=== PATIENT | female | born 1960 | race Caucasian/White ===

== ENCOUNTER 2020-01-30 07:37 | Outpatient (CLI) | payer OTHER, BC ==
[~2020-01-30 07:37] MED LIST: GLUCOSAMINE PO; MULT-658 PO; NAPR-856 PO; NONE PER PT
[2020-01-30] MEDS ORDERED: TURM538C PO (15:34)
[2020-02-04] MEDS ORDERED: FENTANYL PF 250 MCG/5ML ONE (08:40)
== END 2020-01-30 23:59 | disposition home or self-care (01) ==
LOC: STAR 07:37
PROVIDERS: ATTEND Family Medicine
DX: Z20.828 Contact with and (suspected) exposure to other viral communicable diseases (principal)
CPT/HCPCS: 87635

== ENCOUNTER 2020-02-04 07:52 | Day surgery (SDC) | payer OTHER, BC ==
[~2020-02-04] VITALS: Ht 170.2 cm; Wt 75.2 kg
[~2020-02-04 07:52] MED LIST changes: +BUPIVACAINE/PF 0.5% ONE; +EPINEPHRINE 1 MG/ML, 1ML ONE; +TURM538C PO
[2020-02-04] MEDS ORDERED: CHLORHEXIDINE 15 ML UDC MM ONE (08:30)
[2020-02-04] MEDS ORDERED: LACTATED RINGERS 1,000 ML IV SCH (08:30)
[2020-02-04] MEDS ORDERED: GLYCOPYRROLATE 0.2MG/1ML, 5ML ONE (09:47)
[2020-02-04] MEDS ORDERED: CEFAZOLIN 1,000 MG ONE (09:47)
[2020-02-04] MEDS ORDERED: DEXAMETHASONE 4 MG/ML, 1ML ONE (09:47)
[2020-02-04] MEDS ORDERED: PROPOFOL 10 MG/ML, 20ML ONE (09:47)
[2020-02-04] MEDS ORDERED: ONDANSETRON 2MG/ML, 2ML ONE (09:47)
[2020-02-04] MEDS ORDERED: hydrALAzine 20 MG/ML, 1ML IV PRN (10:00)
[2020-02-04] MEDS ORDERED: [UNRECOGNIZED DRUG - OTHER] IV ONE (10:00)
[2020-02-04] MEDS ORDERED: OXYcodone 5 MG/5 ML ORAL.SOL UDC PO PRN (10:00)
[2020-02-04] MEDS ORDERED: MEPERIDINE/PF 25MG/0.5ML IVPush PRN (10:00)
[2020-02-04] MEDS ORDERED: FENTANYL PF 100 MCG/2ML IV PRN (10:00)
[2020-02-04] MEDS ORDERED: ACETAMINOPHEN 325 MG TABLET PO PRN (10:00)
[2020-02-04] MEDS ORDERED: HYDROmorphone 1 MG/ML, 1ML INJ IVPush PRN (10:00)
[2020-02-04] MEDS ORDERED: VWF IV ONE (10:00)
[2020-02-04] MEDS ORDERED: LABETALOL 5MG/ML, 20ML IV PRN (10:00)
[2020-02-04] MEDS ORDERED: ONDANSETRON 2MG/ML, 2ML IVPush PRN (10:00)
[2020-02-04] MEDS ORDERED: LORazepam 2 MG/ML, 1ML IVPush PRN (10:00)
[2020-02-04] MEDS ORDERED: PROMETHAZINE 25 MG/ML, 1ML IVPush PRN (10:00)
[2020-02-04] MEDS ORDERED: METHOCARBAMOL 1,000 MG in DEXTROSE 5% 100 ML IV PRN (10:00)
[2020-02-04] MEDS ORDERED: EPHEDRINE 50 MG/ML, 1ML IVPush PRN (10:00)
== END 2020-02-04 11:30 | disposition home or self-care (01) ==
LOC: OUT 07:52
PROVIDERS: ATTEND Surgery
DX: R22.2 Localized swelling, mass and lump, trunk (principal)
CPT/HCPCS: 21931; 88305; J0171; J0690; J1100; J2405; J2704; J3010; J7120; J7187